=== PATIENT | female | born 1995 | race Caucasian/White ===

== ENCOUNTER 2018-12-12 04:46 | Emergency (ER) | payer BC ==
[~2018-12-12] VITALS: Ht 167.6 cm; Wt 56.7 kg
--- NOTE | 2018-12-12 05:04 | Emergency Room Report ---
History of Present Illness General Chief Complaint: Vomiting Source: Patient Present Illness HPI Patient is a 23-year-old female presented after increased epigastric discomfort as well as vomiting. Patient had prior history of stomach ulcers. She reports having increased discomfort after drinking several glasses of champagne. Patient states approximately 2 hours after drinking she began having increased epigastric discomfort as well as vomiting. She had prior history of endoscopy. She reports having previously had multiple episodes of vomiting with similar symptoms. She denies any other complaints. She denies any hematemesis or bloody stools.She denies being or any abdominal surgeries. Allergies: Coded Allergies: No Known Allergies (Unverified , 12/12/18) Patient History Past Medical History: see triage record Last Menstrual Period: iud Now: No Reviewed Nursing Documentation: PMH: Agreed; PSxH: Agreed Nursing Documentation-PMH Past Medical History: No Stated History Review of Systems All Other Systems: negative except mentioned in HPI Physical Exam Vital Signs Date Time Temp Pulse Resp B/P (MAP) Pulse Ox O2 Delivery O2 Flow Rate FiO2 12/12/18 04:53 97.2 87 18 122/110 (114) 99 Sp02 EP Interpretation: reviewed, normal General Appearance: normal inspection, well appearing, no apparent distress, alert, GCS 15, non-toxic Head: atraumatic ENT: normal ENT inspection, hearing grossly normal, normal voice Neck: normal inspection, full range of motion, supple, no bony tend Respiratory: normal inspection, lungs clear, normal breath sounds, no respiratory distress, no retraction, no wheezing Cardiovascular #1: regular rate, rhythm, no edema Gastrointestinal: normal inspection, normal bowel sounds, non tender, soft, no guarding, no hernia Genitourinary: no CVA tenderness Musculoskeletal: normal inspection, back normal, normal range of motion Neurologic: normal inspection, alert, oriented x3, responsive, alto singer III-XII nml as tested, speech normal Psychiatric: normal inspection, judgement/insight normal, mood/affect normal Skin: normal inspection, normal color, no rash Medical Decision Making Diagnostic Impression: Primary Impression: Gastritis ER Course Patient presented for abdominal pain. Differential diagnoses included ischemic bowel, appendicitis, perforated viscus, abdominal aortic aneurysm, inferior myocardial infarction, viral gastroenteritis among others. Because of complexity of patient's case laboratory testing and imaging studies were ordered.Patient presented after increased vomiting. Laboratory testing was unremarkable. Patient was able to tolerate fluids after IV antiemetics. Patient states he felt better and wanted to go home. 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 Patient states she has had this happen on several occasions in the past after drinking. She is not intoxicated. Patient was advised to return if she felt worse. Patient was advised alcohol cessation. Patient does not have any current symptoms of urinary infection and I will not be treated for urinary infection at this time. Past patient appears to be stable for outpatient evaluation. Labs Test 12/12/18 05:00 White Blood Count 9.1 K/UL (4.8-10.8) Red Blood Count 4.79 M/UL (4.20-5.40) Hemoglobin 14.2 G/DL (12.0-16.0) Hematocrit 42.0 % (37.0-47.0) Mean Corpuscular Volume 88 FL (80-99) Mean Corpuscular Hemoglobin 29.5 PG (27.0-31.0) Mean Corpuscular Hemoglobin Concent 33.7 G/DL (32.0-36.0) Red Cell Distribution Width 11.5 % (11.6-14.8) Platelet Count 188 K/UL (150-450) Mean Platelet Volume 9.9 FL (6.5-10.1) Neutrophils (%) (Auto) 83.1 % (45.0-75.0) Lymphocytes (%) (Auto) 12.4 % (20.0-45.0) Monocytes (%) (Auto) 3.8 % (1.0-10.0) Eosinophils (%) (Auto) 0.1 % (0.0-3.0) Basophils (%) (Auto) 0.7 % (0.0-2.0) Urine Color Pale yellow Urine Appearance Slightly cloudy Urine pH 8 (4.5-8.0) Urine Specific [place] 1.010 (1.005-1.035) Urine Protein 3+ (NEGATIVE) Urine Glucose (UA) Negative (NEGATIVE) Urine Ketones 4+ (NEGATIVE) Urine Blood 3+ (NEGATIVE) Urine Nitrite Negative (NEGATIVE) Urine Bilirubin Negative (NEGATIVE) Urine Urobilinogen Normal MG/DL (0.0-1.0) Urine Leukocyte Esterase 1+ (NEGATIVE) Urine RBC 15-20 /HPF (0 - 2) Urine WBC 2-4 /HPF (0 - 2) Urine Squamous Epithelial Cells Many /LPF (NONE/OCC) Urine Bacteria Moderate /HPF (NONE) Urine HCG, Qualitative Negative (NEGATIVE) Sodium Level 141 MMOL/L (136-145) Potassium Level 4.2 MMOL/L (3.5-5.1) Chloride Level 104 MMOL/L (98-107) Carbon Dioxide Level 24 MMOL/L (21-32) Anion Gap 14 mmol/L (5-15) Blood Urea Nitrogen 14 mg/dL (7-18) Creatinine 1.0 MG/DL (0.55-1.30) Estimat Glomerular Filtration Rate > 60 mL/min (>60) Glucose Level 110 MG/DL (74-106) Calcium Level 9.7 MG/DL (8.5-10.1) Total Bilirubin 0.8 MG/DL (0.2-1.0) Aspartate Amino Transf (AST/SGOT) 38 U/L (15-37) Alanine Aminotransferase (ALT/SGPT) 35 U/L (12-78) Alkaline Phosphatase 38 U/L (46-116) Total Protein 7.5 G/DL (6.4-8.2) Albumin 4.8 G/DL (3.4-5.0) Globulin 2.7 g/dL Albumin/Globulin Ratio 1.8 (1.0-2.7) Lipase 96 U/L (73-393) Serum Alcohol < 3 mg/dL Last Vital Signs Date Time Temp Pulse Resp B/P (MAP) Pulse Ox O2 Delivery O2 Flow Rate FiO2 12/12/18 04:53 97.2 87 18 122/110 (114) 99 Status: improved Scripts Omeprazole (OMEPRAZOLE) 20 Mg Capsule.dr 20 MG ORAL DAILY, #30 CAP Prov: Bryan Mcdonald MD 12/12/18 Ondansetron (Zofran) 4 Mg Tablet 4 MG ORAL Q6H PRN for Nausea & Vomiting, #20 TAB Prov: Bryan Mcdonald MD 12/12/18 Bryan Mcdonald MD Dec 12, 2018 05:04
[2018-12-12 05:15] VITALS: BP 122/110
--- NOTE | 2018-12-12 05:15 | NUR ---
ER Nurse Note: Pt came from home c/o n/v for the past 5 hrs. Pt stated she has hx of stomach ulcers, drank champagne and did not stop throwing up since then. Pt is vomiting at bedside; emesis bag given. Pt a&ox4, VSS, stable. ERMD at pt side; will continue to montior.
[2018-12-12 05:40] LABS: BASOPHILS % (AUTO) 0.7 % (0.0-2.0); EOSINOPHILS % (AUTO) 0.1 % (0.0-3.0); HEMOGLOBIN 14.2 G/DL (12.0-16.0); LYMPHOCYTES % (AUTO) 12.4 % (20.0-45.0); MEAN CORPUSCULAR VOLUME 88 FL (80-99); MONOCYTES % (AUTO) 3.8 % (1.0-10.0); NEUTROPHILS % (AUTO) 83.1 % (45.0-75.0); PLATELET COUNT 188 K/UL (150-450); RED BLOOD COUNT 4.79 M/UL (4.20-5.40); RED CELL DISTRIBUTION WIDTH 11.5 % (11.6-14.8); WHITE BLOOD COUNT 9.1 K/UL (4.8-10.8)
[2018-12-12 05:48] LABS: ANION GAP 14 mmol/L (5-15); BLOOD UREA NITROGEN 14 mg/dL (7-18); CALCIUM 9.7 MG/DL (8.5-10.1); CARBON DIOXIDE 24 MMOL/L (21-32); CHLORIDE 104 MMOL/L (98-107); POTASSIUM 4.2 MMOL/L (3.5-5.1); SODIUM 141 MMOL/L (136-145)
[2018-12-12 05:52] LABS: ALANINE AMINOTRANSFERASE 35 U/L (12-78); ALBUMIN 4.8 G/DL (3.4-5.0); ALBUMIN/GLOBULIN RATIO 1.8 (1.0-2.7); ALKALINE PHOSPHATASE 38 U/L (46-116); ASPARTATE AMINO TRANSFERASE 38 U/L (15-37); BILIRUBIN,TOTAL 0.8 MG/DL (0.2-1.0)
[2018-12-12] MEDS ORDERED: OMEPRAZOLE20 M2 ORAL (05:57)
[2018-12-12] MEDS ORDERED: ZOFRAN4 M1 ORAL (05:57)
[2018-12-12 06:09] LABS: BILIRUBIN, URINE NEGATIVE (NEGATIVE); COLOR,URINE PALE YELLOW; GLUCOSE, URINE (UA) NEGATIVE (NEGATIVE); KETONES,URINE 4+ (NEGATIVE); LEUKOCYTE ESTERASE ,URINE 1+ (NEGATIVE); NITRITE,URINE NEGATIVE (NEGATIVE); PH,URINE 8 (4.5-8.0); PROTEIN,URINE 3+ (NEGATIVE); UROBILINOGEN,URINE NORMAL MG/DL (0.0-1.0)
[2018-12-12 06:10] LABS: APPEARANCE,URINE SLIGHTLY CLOUDY
[2018-12-12 06:26] VITALS: BP 128/72
--- NOTE | 2018-12-12 06:29 | NUR ---
ER Nurse Note: Pt seen, treated, medically cleared by ERMD for discharge. Discharge instructions given with repeat verbalization by pt. Instructed pt to follow up with primary care physican within 2-3 days. Pt a&ox4, VSS, no signs of distress. All orders completed per ERMD orders. Denies pain. ID band removed. IV removed; site clean and bandaged. Left with steady gait via own transportation.
== END 2018-12-12 06:32 | disposition home or self-care (01) ==
LOC: EMR 05:03
DX: K29.70 Gastritis, unspecified, without bleeding (principal); Z97.5 Presence of (intrauterine) contraceptive device
CPT/HCPCS: 36415; 80053; 81003; 81025; 83690; 85025; 87086; 96361; 96374; 96375; 99284; G0480; J2405; S0028; 80329